=== PATIENT | male | born 2005 | race Caucasian/White ===

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

== ENCOUNTER → 2023-08-18 10:42 | Outpatient (BNVA) | payer OTHER, SELFPAY | PROVIDERS: Visit Provider Nurse Practitioner Family | DX: Z02.1 Encounter for pre-employment examination (principal) | CPT/HCPCS: 80307 ==